=== PATIENT | female | born 1975 | race African-American/Black ===

== ENCOUNTER 2017-06-15 15:53 | Emergency (ER) | payer SELFPAY ==
[~2017-06-15] VITALS: Ht 160 cm; Wt 93.0 kg
[~2017-06-15 15:53] MED LIST: ACET-73 PO; [UNRECOGNIZED DRUG - CODE] PO
[2017-06-15] MEDS ORDERED: METF500T4 PO (16:11)
--- NOTE | 2017-06-15 16:20 | NUR ---
DR RECINOS AT THE BEDSIDE FOR EVAL AND EXAM.
[2017-06-15 16:44] LABS: CREATININE 0.7 mg/dL (0.6-1.3); HEMATOCRIT 34.4 % (37-47); HEMOGLOBIN 10.5 G/DL (12.0-16.0); MEAN CORPUSCULAR HGB CONC 31 g/dL (32.0-37.0); MEAN CORPUSCULAR VOLUME 65.5 FL (81.0-99.0); PLATELET COUNT (AUTO) 377 K/UL (150-450); POTASSIUM 4.4 mmol/L (3.5-5.1); RED BLOOD CELL COUNT(AUTO) 5.25 MIL/UL (4.2-5.4); WHITE BLOOD COUNT (AUTO) 7.2 K/UL (4.0-11.2)
[2017-06-15 16:58] LABS: EOSINOPHILS % (MANUAL) 1 % (0-8); LYMPHOCYTES % (MANUAL) 23 % (20-40); MONOCYTES % (MANUAL) 11 % (2-10); NEUTROPHILS % (MANUAL) 65 % (42-75)
[2017-06-15 17:13] VITALS: BP 121/91
--- NOTE | 2017-06-15 17:13 | NUR ---
Patient discharged to home in stable conditon. Written and verbal after care instructions given. Patient verbalizes understanding of instructions.
== END 2017-06-15 17:14 | disposition home or self-care (01) ==
LOC: ER 15:54
DX: R42 Dizziness and giddiness (principal)
CPT/HCPCS: 36415; 85025; A4663

== ENCOUNTER 2018-02-11 16:52 | Emergency (ER) | payer OTHER ==
[~2018-02-11] VITALS: Ht 160 cm; Wt 90.7 kg
[~2018-02-11 16:52] MED LIST changes: +METF500T6 PO
[2018-02-11] MEDS ORDERED: IV NORMAL SALINE 1000 ML BAG IV ONE (17:30)
[2018-02-11 17:40] LABS: BASOPHILS # (AUTO) 0.1 K/uL (0.0-8.0); BASOPHILS % (AUTO) 1.4 % (0.0-2.0); EOSINOPHILS # (AUTO) 0.1 K/uL (0.0-0.7); HEMATOCRIT 30.1 % (31.2-41.9); HEMOGLOBIN 9.2 g/dL (10.9-14.3); LYMPHOCYTES # (AUTO) 2.9 K/uL (20.0-40.0); LYMPHOCYTES % (AUTO) 38.9 % (20.5-51.5); MEAN CORPUSCULAR HEMOGLOBIN 18.4 uug (24.7-32.8); MEAN CORPUSCULAR HGB CONC 31 g/dL (32.3-35.6); MEAN CORPUSCULAR VOLUME 60.3 fL (75.5-95.3); MONOCYTES # (AUTO) 0.5 K/uL (2.0-10.0); MONOCYTES % (AUTO) 6.1 % (0.0-11.0); NEUTROPHILS # (AUTO) 3.9 K/uL (1.8-8.9); NEUTROPHILS % (AUTO) 52.6 % (38.5-71.5); PLATELET COUNT (AUTO) 378 K/uL (179-408); RED BLOOD CELL COUNT(AUTO) 4.99 MIL/uL (3.63-4.92); WHITE BLOOD COUNT (AUTO) 7.4 K/uL (3.8-11.8)
[2018-02-11 17:43] LABS: CREATININE 0.8 mg/dL (0.6-1.3); POTASSIUM 4.2 mmol/L (3.5-5.1)
[2018-02-11 17:50] LABS: BILIRUBIN,DIRECT 0.1 mg/dL (0.0-0.2); BILIRUBIN,TOTAL 0.2 mg/dL (0.2-1.0); TOTAL PROTEIN, SERUM 7.4 g/dL (6.4-8.2)
[2018-02-11 18:05] LABS: BAND % (MANUAL) 1 % (0-10); EOSINOPHILS % (MANUAL) 2 % (0-8); LYMPHOCYTES % (MANUAL) 30 % (20-40); MONOCYTES % (MANUAL) 6 % (2-10); NEUTROPHILS % (MANUAL) 61 % (42-75)
--- NOTE | 2018-02-11 18:30 | NUR ---
Patient discharged to home in stable conditon. Written and verbal after care instructions given. Patient verbalizes understanding of instructions.pt says feels better, rady to go home.
[2018-02-11 18:31] VITALS: BP 111/71
== END 2018-02-11 18:32 | disposition home or self-care (01) ==
LOC: ER 16:52
DX: D50.9 Iron deficiency anemia, unspecified (principal); D25.9 Leiomyoma of uterus, unspecified; E11.9 Type 2 diabetes mellitus without complications; Z79.84 Long term (current) use of oral hypoglycemic drugs; Z79.1 Long term (current) use of non-steroidal anti-inflammatories (NSAID); Z79.899 Other long term (current) drug therapy
CPT/HCPCS: 36415; 84703; 85025; 93005; A4663

== ENCOUNTER 2024-02-21 14:02 | Emergency (ER) | payer BC, OTHER ==
[~2024-02-21] VITALS: Ht 160 cm; Wt 93.0 kg
[~2024-02-21 14:02] MED LIST changes: +METF-440 PO; -METF500T6 PO; -[UNRECOGNIZED DRUG - CODE] PO
[2024-02-21] MEDS ORDERED: FLUT12AE5 INH (15:39)
[2024-02-21] MEDS ORDERED: ALBU6.7H9 INH (15:39)
[2024-02-21] MEDS ORDERED: PRED20TA PO (15:39)
[2024-02-21 15:46] VITALS: BP 147/98; O2SAT 98
[2024-02-24] MEDS ORDERED: FLUT12AE20 INH (19:17)
== END 2024-02-21 15:46 | disposition home or self-care (01) ==
LOC: ER 14:02
DX: J45.909 Unspecified asthma, uncomplicated (principal); E11.9 Type 2 diabetes mellitus without complications; E66.9 Obesity, unspecified; D64.9 Anemia, unspecified; Z79.899 Other long term (current) drug therapy; Z68.36 Body mass index [BMI] 36.0-36.9, adult
CPT/HCPCS: A4606; A4663